=== PATIENT | female | born 1985 | race Caucasian/White ===

== ENCOUNTER 2019-03-17 19:39 | Emergency (ER) | payer OTHER ==
[2019-03-17] MEDS ORDERED: BENADRYL 25 MG CAPSULE PO ONE (19:55)
[2019-03-17] MEDS ORDERED: BENADRYL 25 MG CAPSULE ONE (19:58)
--- NOTE | 2019-03-17 20:00 | ERPHSYRPT ---
- History of Present Illness Time Seen by Provider: 03/17/19 19:56 Source: patient Exam Limitations: no limitations Physician History: 33-year-old white female arrives with complaint that she thinks she is having an allergic reaction. she states that this has been going on for 10 minutes. She thinks she might have been exposed lavender which she is allergic to. She states that she wiped her left thigh and then began having swelling of her left eyelid. She is not having any shortness of breath she has no other complaints,. past medical history patient denies past surgical history includes and tubal ligation. Social history includes marijuana use occasional methamphetamine use and tobacco use she denies alcohol use. . . Timing/Duration: today (10 minutes ago) Severity: mild Associated Symptoms: other (swelling left eyelid), No nausea, No vomiting, No abdominal pain, No shortness of breath, No heartburn, No diaphoresis, No cough, No chills, No chest pain, No fever, No headaches, No loss of appetite, No malaise, No rash, No syncope, No seizure, No weakness Allergies/Adverse Reactions: lavender (Lavandula angustifolia) Allergy (Verified 03/17/19 19:44) Swelling of Eyelids Home Medications: No Reportable Medications [No Reported Medications] 03/17/19 [History] - Review of Systems Constitutional: No Fever, No Chills Eyes: Other (swelling left upper eyelid), No Discharge, No Eye Pain, No Eye Redness, No Itchy, No Photophobia, No Tearing, No Vision Changes, No Double Vision, No Foreign Body Sensation Ears, Nose, & Throat: No Symptoms Respiratory: No Cough, No Dyspnea Cardiac: No Chest Pain, No Edema, No Syncope Abdominal/Gastrointestinal: No Abdominal Pain, No Nausea, No Vomiting, No Diarrhea Genitourinary Symptoms: No Dysuria Musculoskeletal: No Back Pain, No Neck Pain Skin: No Rash Neurological: No Dizziness, No Focal Weakness, No Sensory Changes Psychological: No Symptoms Endocrine: No Symptoms All Other Systems: Reviewed and Negative - Past Medical History Pertinent Past Medical History: No - Past Surgical History Past Surgical History: Yes Female Surgical History: Section, Tubal Ligation - Nursing Vital Signs Nursing Vital Signs: Initial Vital Signs Temperature 97.5 F 03/17/19 19:45 Pulse Rate 101 H 03/17/19 19:45 Respiratory Rate 14 05/18/19 19:45 Blood Pressure 136/93 03/17/19 19:45 O2 Sat by Pulse Oximetry 97 03/17/19 19:45 Pain Scale Pain Intensity 0 - Physical Exam General Appearance: no apparent distress, alert Eye Exam: PERRL/EOMI, other (slight edema left upper eyelid, fundi unremarkable , conjunctiva not erythematous. Sclera are white) Ears, Nose, Throat Exam: normal ENT inspection, TMs normal, pharynx normal, moist mucous membranes Neck Exam: normal inspection, non-tender, supple, full range of motion Respiratory Exam: normal breath sounds, lungs clear, No respiratory distress Cardiovascular Exam: regular rate/rhythm, normal heart sounds, normal peripheral pulses, capillary refill <2 sec Gastrointestinal/Abdomen Exam: soft, normal bowel sounds, No tenderness, No mass Back Exam: normal inspection, normal range of motion, No CVA tenderness, No vertebral tenderness Extremity Exam: normal inspection, normal range of motion, pelvis stable Neurologic Exam: alert, oriented x 3, cooperative, 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, normal mood/affect, nml cerebellar function, nml station & gait, sensation nml, No motor deficits Skin Exam: normal color, warm, dry, No rash Lymphatic Exam: No adenopathy SpO2 Interpretation: normal (98%) Ordered Tests: Active Orders 24 hr Category Date Time Status Visual Acuity STAT Care 03/17/19 19:55 Active Medication Summary Discontinued Medications Generic Name Dose Route Start Last Admin Trade Name Jas PRN Reason Stop Dose Admin Diphenhydramine HCl 50 mg 03/17/19 19:55 03/17/19 19:58 Benadryl 25 Mg Capsule PO 03/17/19 19:56 50 mg STAT ONE Administration Diphenhydramine HCl Confirm 03/17/19 19:58 Benadryl 25 Mg Capsule Administered 03/17/19 19:59 Dose 50 mg .ROUTE .[facility] - Progress Progress: improved Progress Note: 03/17/19 20:53 33-year-old white female arrives with complaint of swelling in her left upper eyelid symptoms since 10 minutes prior to arrival. Patient thinks she came into contact with lavender. Patient is improving with 50 mg of Benadryl orally. Will go ahead and give patient prednisone 60 mg orally and tapering dose. Patient to continue Benadryl 50 mg orally every 6 hours for one to 2 days. Will write for tapering dose of prednisone patient to fill this if symptoms not resolved tomorrow. - Departure Departure Disposition: Home Clinical Impression: Swelling of left upper eyelid Allergic reaction Qualifiers: Encounter type: initial encounter Qualified Code(s): T78.40XA - Allergy, unspecified, initial encounter Condition: Fair Critical Care Time: No Additional Instructions: Return home. Avoid lavender or anything else he might be allergic to. Benadryl 50 mg orally every 6 hours for one to 2 days longer if symptoms persist. Tapering dose of prednisone as directed start tomorrow if symptoms not completely resolved. Followup with your family . symptoms are worse, no better in 24-48 hours, or persist longer than 72 hours. Return for acute distress or for severe symptoms.
[2019-03-17] MEDS ORDERED: DELTASONE 20 MG PO ONE (20:52)
[2019-03-17] MEDS ORDERED: DELTASONE 20 MG ONE (20:55)
[2019-03-17 21:05] VITALS: O2SAT 99
[2019-03-17 21:07] VITALS: BP 132/80; PULSE 88
== END 2019-03-17 21:07 | disposition home or self-care (01) ==
LOC: MERGE 19:39 → ED 19:39
DX: H02.844 Edema of left upper eyelid (principal); T78.40XA Allergy, unspecified, initial encounter
CPT/HCPCS: 99283; A9270-GY

== ENCOUNTER 2019-04-16 05:40 | Emergency (ER) | payer OTHER ==
[2019-04-16] MEDS ORDERED: Sodium Chloride 0.9% 1000 ML 1,000 ML IV STA (06:12)
--- NOTE | 2019-04-16 06:25 | ERPHSYRPT ---
- History of Present Illness Source: patient, family Exam Limitations: no limitations Patient Subjective Stated Complaint: pt is alert and oriented. pt is ambulatory with a steady gait. pt comes in after having a suspected seizure. pt has c/o head and neck pain. pt PERRLA. pt has a small raised area to his right posterior occipital area. no active bleeding. pt is able to speak. pt is able to move all extremities easily. pt has bilat wrist splints on due to suspected carpal tunnel. pt is breathing easily. pt skin pwd. Triage Nursing Assessment: see above Timing/Duration: hour(s) (1), resolved prior to arrival Severity: moderate Character of Deficits: none Baseline/Normal Cognition: alert oriented x 3 Current Cognition: alert oriented x 3 Baseline Gait: walks w/o assistance Associated Symptoms: denies symptoms Hx Tetanus, Diphtheria Vaccination/Date Given: No Hx Influenza Vaccination/Date Given: No Hx Pneumococcal Vaccination/Date Given: No Immunizations Up to Date: Yes <SHELBY QUIJANO - Last Filed: 04/16/19 07:04> <JOSE FISCHER - Last Filed: 04/16/19 08:49> - History of Present Illness Time Seen by Provider: 04/16/19 05:59 Physician History: Pt was found on the floor by her fiancee this morning, apparently she had a seizure lasting about 40 seconds and she became confused after that. She is c/o pain in her upper neck, denies other pain or injury, no nausea, vomiting, no focal weakness, numbness, visual changes or chest pain, SOB< slurred speech other complaints. (SHELBY QUIJANO) Allergies/Adverse Reactions: lavender (Lavandula angustifolia) Allergy (Verified 03/19/19 09:51) Swelling of Eyelids - Review of Systems Constitutional: No Symptoms Eyes: No Symptoms Ears, Nose, & Throat: No Symptoms Respiratory: No Symptoms Cardiac: No Symptoms Abdominal/Gastrointestinal: No Symptoms Genitourinary Symptoms: No Symptoms Musculoskeletal: Neck Pain Skin: No Symptoms Neurological: Seizure All Other Systems: Reviewed and Negative <SHELBY QUIJANO - Last Filed: 04/16/19 07:04> - Past Medical History Pertinent Past Medical History: No Neurological History: Seizures ENT History: No Pertinent History Cardiac History: No Pertinent History Respiratory History: No Pertinent History Endocrine Medical History: No Pertinent History Musculoskeletal History: No Pertinent History GI Medical History: No Pertinent History History: No Pertinent History Psycho-Social History: Bipolar, Depression, Anxiety Female Reproductive Disorders: No Pertinent History Other Medical History: "stress seizures" - Past Surgical History Past Surgical History: Yes Female Surgical History: Tubal Ligation, Section Other Surgical History: x2 - Social History Smoking Status: Current every day smoker How long have you smoked: 20 years Exposure to second hand smoke: Yes Drug Use: marijuana Patient Lives Alone: No - Female History Hx Now: No (tubal) <SHELBY QUIJANO - Last Filed: 04/16/19 07:04> - [place] Coma Scale Best Eye Response (Claudy): (4) open spontaneously Best Verbal Response (Claudy): (5) oriented Best Motor Response ([place]): (6) obeys commands [place] Total: 15 - Physical Exam Eye Exam: bilateral eye: normal inspection, PERRL, EOMI Ears, Nose, Throat Exam: pharynx normal, moist mucous membranes Neck Exam: normal inspection, non-tender, supple, other (mild, bilateral paracervical, muscular tenderness, full ROM, no swelling, or deformity.), No mass, No carotid bruit, No JVD, No midline tenderness Respiratory: normal breath sounds, lungs clear, airway intact, No chest tenderness Cardiovascular: regular rate/rhythm, normal heart sounds, normal peripheral pulses, No murmur Gastrointestinal: soft, normal bowel sounds, No tenderness, No distention, No mass, No guarding, No rebound, No organomegaly Back Exam: normal inspection, No CVA tenderness, No vertebral tenderness Extremity Exam: normal inspection, pelvis stable, No calf tenderness, No pedal edema Mental Status: alert, oriented x 3, 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: normal speech Motor/Sensory: no motor deficit, no sensory deficit DTR: bicep (R): 2+, bicep (L): 2+, tricep (R): 2+, tricep (L): 2+, knee (R): 2+ , knee (L): 2+, ankle (R): 2+, ankle (L): 2+ Skin Exam: normal color, warm, dry, No rash, No petechiae, No cyanosis SpO2 Interpretation: normal SpO2: 97 O2 Delivery: Room Air <SHELBY QUIJANO - Last Filed: 04/16/19 07:04> - Nursing Vital Signs Nursing Vital Signs: Initial Vital Signs Temperature 98.3 F 04/16/19 05:58 Pulse Rate 109 H 04/16/19 05:58 Respiratory Rate 18 04/16/19 05:58 Blood Pressure 111/83 04/16/19 05:58 O2 Sat by Pulse Oximetry 97 04/16/19 05:58 Pain Scale Pain Intensity 6 - Course Nursing assessment & vital signs reviewed: Yes EKG Interpreted by Me: RATE (90/min), NORMAL AXIS, NORMAL INTERVALS, NORMAL QRS , NORMAL ST-T <SHELBY QUIJANO - Last Filed: 04/16/19 07:04> Ordered Tests: Active Orders 24 hr Category Date Time Status EKG-ER Only STAT Care 04/16/19 06:12 Active IV Insertion STAT Care 04/16/19 06:12 Active IV Insertion STAT Care 04/16/19 06:18 Active Pulse Oximetry (ED) STAT Care 04/16/19 06:12 Active Seizure Precautions -SCCHED STAT Care 04/16/19 06:12 Active CERVICAL SPINE WO CONTRAST [CT] Stat Exams 04/16/19 06:17 Completed HEAD WITHOUT CONTRAST [CT] Stat Exams 04/16/19 06:17 Completed CBC W DIFF Stat Lab 04/16/19 06:45 Completed CK-Creatinine Phosphokinase Routine Lab 04/16/19 06:45 Completed CMP Routine Lab 04/16/19 06:45 Completed HCG,QUALITATIVE URINE Stat Lab 04/16/19 06:19 Completed MAGNESIUM Routine Lab 04/16/19 06:45 Completed PROTIME WITH INR Stat Lab 04/16/19 06:45 Completed PTT Stat Lab 04/16/19 06:45 Completed TROPONIN Q3H Lab 04/16/19 06:45 Completed TROPONIN Q3H Lab 04/16/19 09:30 Ordered TROPONIN Q3H Lab 04/16/19 12:30 Ordered TROPONIN Q3H Lab 04/16/19 15:30 Ordered TROPONIN Q3H Lab 04/16/19 18:30 Ordered UA W/RFX UR CULTURE Stat Lab 04/16/19 06:45 Completed Urine Triage Profile Stat Lab 04/16/19 06:45 Completed Medication Summary Discontinued Medications Generic Name Dose Route Start Last Admin Trade Name Freq PRN Reason Stop Dose Admin Sodium Chloride 1,000 mls @ 999 mls/hr 04/16/19 06:12 04/16/19 06:51 Sodium Chloride 0.9% 1000 Ml IV 04/16/19 07:12 999 mls/hr .Q1H1M STA Administration Sodium Chloride Confirm 04/16/19 06:33 Sodium Chloride 0.9% 1000 Ml Administered 04/16/19 06:34 Dose 1,000 mls @ ud .ROUTE .[facility] Lab/Rad Data: Laboratory Result Diagrams 04/16/19 06:45 04/16/19 06:45 Laboratory Results 04/16/19 04/16/19 04/16/19 Range/Units 06:45 06:45 06:45 WBC (4.0-10.5) K/mm3 RBC (4.1-5.4) M/mm3 Hgb (12.0-16.0) gm/dl Hct (35-47) % MCV (78-100) fl MCH (26-32) pg MCHC (32-36) g/dl RDW (11.5-14.0) % Plt Count (150-450) K/mm3 MPV (6-9.5) fl Gran % (36.0-66.0) % Eos # (Auto) (0-0.5) Absolute Lymphs (auto) (1.0-4.6) Absolute Monos (auto) (0.0-1.3) Lymphocytes % (24.0-44.0) % Monocytes % (0.0-12.0) % Eosinophils % (0.00-5.0) % Basophils % (0.0-0.4) % Absolute Granulocytes (1.4-6.9) Basophils # (0-0.4) PT (9.95-12.35) SECONDS INR (0.8-3.0) APTT (25.3-37.0) SECONDS Sodium 141 (137-145) mmol/L Potassium 4.1 (3.5-5.1) mmol/L Chloride 104 (98-107) mmol/L Carbon Dioxide 26 (22-30) mmol/L Anion Gap 15.3 H (5-15) MEQ/L BUN 12 (7-17) mg/dL Creatinine 0.75 (0.52-1.04) mg/dL Estimated GFR > 60.0 ML/MIN Glucose 86 (74-106) mg/dL Calcium 10.1 (8.4-10.2) mg/dL Magnesium 2.0 (1.6-2.3) mg/dL Total Bilirubin 0.60 (0.2-1.3) mg/dL AST 19 (14-36) U/L ALT 12 (0-35) U/L Alkaline Phosphatase 47 (38-126) U/L Creatine Kinase 91 (30-135) U/L Troponin I < 0.012 (0.000-0.034) ng/mL Serum Total Protein 7.8 (6.3-8.2) g/dL Albumin 4.4 (3.5-5.0) g/dL Urine Color STRAW (YELLOW) Urine Appearance CLEAR (CLEAR) Urine pH 7.0 (5-6) Ur Specific [place] 1.005 (1.005-1.025) Urine Protein NEGATIVE (Negative) Urine Ketones NEGATIVE (NEGATIVE) Urine Blood NEGATIVE (0-5) Rashaad/ul Urine Nitrite NEGATIVE (NEGATIVE) Urine Bilirubin NEGATIVE (NEGATIVE) Urine Urobilinogen NEGATIVE (0-1) mg/dL Ur Leukocyte Esterase NEGATIVE (NEGATIVE) Urine WBC (Auto) NONE (0-5) /HPF Urine RBC (Auto) NONE SEEN (0-2) /HPF U Epithel Cells (Auto) NONE (FEW) /HPF Urine Bacteria (Auto) NONE SEEN (NEGATIVE) /HPF Urine Culture Reflexed NO (NO) Urine Glucose NEGATIVE (NEGATIVE) mg/dL Urine HCG, Qual (Negative) Urine Opiates Level NEGATIVE (NEGATIVE) Ur Methadone NEGATIVE (NEGATIVE) Urine Barbiturates NEGATIVE (NEGATIVE) Ur Phencyclidine (PCP) NEGATIVE (NEGATIVE) Urine Amphetamine POSITIVE (NEGATIVE) U Benzodiazepine Level NEGATIVE (NEGATIVE) Urine Cocaine NEGATIVE (NEGATIVE) Urine Marijuana (THC) POSITIVE (NEGATIVE) 04/16/19 04/16/19 04/16/19 Range/Units 06:45 06:45 06:19 WBC 9.0 (4.0-10.5) K/mm3 RBC 4.78 (4.1-5.4) M/mm3 Hgb 15.3 (12.0-16.0) gm/dl Hct 46.3 (35-47) % MCV 96.9 (78-100) fl MCH 32.0 (26-32) pg MCHC 33.0 (32-36) g/dl RDW 13.5 (11.5-14.0) % Plt Count 583 H (150-450) K/mm3 MPV 9.1 (6-9.5) fl Gran % 53.8 (36.0-66.0) % Eos # (Auto) 0.18 (0-0.5) Absolute Lymphs (auto) 3.30 (1.0-4.6) Absolute Monos (auto) 0.58 (0.0-1.3) Lymphocytes % 36.9 (24.0-44.0) % Monocytes % 6.5 (0.0-12.0) % Eosinophils % 2.0 (0.00-5.0) % Basophils % 0.8 (0.0-0.4) % Absolute Granulocytes 4.82 (1.4-6.9) Basophils # 0.07 (0-0.4) PT 12.2 (9.95-12.35) SECONDS INR 1.08 (0.8-3.0) APTT 35.1 (25.3-37.0) SECONDS Sodium (137-145) mmol/L Potassium (3.5-5.1) mmol/L Chloride (98-107) mmol/L Carbon Dioxide (22-30) mmol/L Anion Gap (5-15) MEQ/L BUN (7-17) mg/dL Creatinine (0.52-1.04) mg/dL Estimated GFR ML/MIN Glucose (74-106) mg/dL Calcium (8.4-10.2) mg/dL Magnesium (1.6-2.3) mg/dL Total Bilirubin (0.2-1.3) mg/dL AST (14-36) U/L ALT (0-35) U/L Alkaline Phosphatase (38-126) U/L Creatine Kinase (30-135) U/L Troponin I (0.000-0.034) ng/mL Serum Total Protein (6.3-8.2) g/dL Albumin (3.5-5.0) g/dL Urine Color (YELLOW) Urine Appearance (CLEAR) Urine pH (5-6) Ur Specific [place] (1.005-1.025) Urine Protein (Negative) Urine Ketones (NEGATIVE) Urine Blood (0-5) Rashaad/ul Urine Nitrite (NEGATIVE) Urine Bilirubin (NEGATIVE) Urine Urobilinogen (0-1) mg/dL Ur Leukocyte Esterase (NEGATIVE) Urine WBC (Auto) (0-5) /HPF Urine RBC (Auto) (0-2) /HPF U Epithel Cells (Auto) (FEW) /HPF Urine Bacteria (Auto) (NEGATIVE) /HPF Urine Culture Reflexed (NO) Urine Glucose (NEGATIVE) mg/dL Urine HCG, Qual NEGATIVE (Negative) Urine Opiates Level (NEGATIVE) Ur Methadone (NEGATIVE) Urine Barbiturates (NEGATIVE) Ur Phencyclidine (PCP) (NEGATIVE) Urine Amphetamine (NEGATIVE) U Benzodiazepine Level (NEGATIVE) Urine Cocaine (NEGATIVE) Urine Marijuana (THC) (NEGATIVE) <SHELBY QUIJANO - Last Filed: 04/16/19 07:04> - Progress Progress: improved, re-examined Counseled pt/family regarding: lab results, diagnosis, need for follow-up, rad results <JOSE FISCHER - Last Filed: 04/16/19 08:49> - Progress Progress Note: 04/16/19 07:[address] Fischer, he will follow up with her results. (SHELBY QUIJANO) 04/16/19 08:41 ct head and c spine negative for acute process. pt admits to marijuana use but does not use methamphetamines but is around people who do. i discussed with pt placing her on dilantin because of seizure episode. pt states she agrees to that medication and will follow up with pcp and neurologist before 10 day supply runs out. (JOSE FISCHER) <SHELBY QUIJANO - Last Filed: 04/16/19 07:04> - Departure Departure Disposition: Home Critical Care Time: No <JOSE FISCHER - Last Filed: 04/16/19 08:49> - Departure Clinical Impression: Seizures Condition: Stable Referrals: CARLITOS SRINIVASAN MD [Primary Care Provider] - Additional Instructions: avoid methamphetamines. follow up with primary doctor and neurologist for further management. take medications as prescribed Prescriptions: Phenytoin Sod Extended 100 mg* [Dilantin 100 MG] 100 mg PO TID #30 capsule
[2019-04-16] MEDS ORDERED: Sodium Chloride 0.9% 1000 ML 1,000 ML ONE (06:33)
[2019-04-16 06:59] LABS: BASOPHIL % 0.8 % (0.0-0.4); Basophil (Absolute #) 0.07 (0-0.4); Eosinophil (Absolute #) 0.18 (0-0.5); Granulocyte Absolute (ANC) 4.82 (1.4-6.9); Granulocytes % 53.8 % (36.0-66.0); Hematocrit 46.3 % (35-47); Hemoglobin 15.3 gm/dl (12.0-16.0); Lymphocytes % 36.9 % (24.0-44.0); Mean Cell Volume 96.9 fl (78-100); Mean Platelet Volume 9.1 fl (6-9.5); Monocytes % 6.5 % (0.0-12.0); Platelet Count 583 K/mm3 (150-450); Red Blood Count 4.78 M/mm3 (4.1-5.4); Red Cell Distribution Width 13.5 % (11.5-14.0)
[2019-04-16 07:01] LABS: Appearance CLEAR (CLEAR); Bacteria NONE SEEN /HPF (NEGATIVE); Bilirubin NEGATIVE (NEGATIVE); Blood NEGATIVE Ery/ul (0-5); Glucose NEGATIVE (NEGATIVE); Ketones NEGATIVE (NEGATIVE); Leukocyte Esterase NEGATIVE (NEGATIVE); Nitrite NEGATIVE (NEGATIVE); Protein,Urine Dip NEGATIVE (Negative); RBC NONE SEEN /HPF (0-2); Specific Gravity 1.005 (1.005-1.025); Urobilinogen NEGATIVE mg/dL (0-1)
[2019-04-16 07:06] LABS: INR 1.08 (0.8-3.0); PROTIME 12.2 SECONDS (9.95-12.35)
[2019-04-16 07:09] LABS: PTT 35.1 SECONDS (25.3-37.0)
[2019-04-16 07:22] LABS: ALBUMIN 4.4 g/dL (3.5-5.0); ALKALINE PHOSPHATASE 47 U/L (38-126); ANION GAP 15.3 MEQ/L (5-15); BLOOD UREA NITROGEN 12 mg/dL (7-17); CHLORIDE 104 mmol/L (98-107); CK-Creatinine Phosphokinase 91 U/L (30-135); Calcium 10.1 mg/dL (8.4-10.2); Carbon Dioxide 26 mmol/L (22-30); Creatinine 1 0.75 mg/dL (0.52-1.04); Glucose 86 mg/dL (74-106); Potassium 4.1 mmol/L (3.5-5.1); SGOT/AST 19 U/L (14-36); SGPT/ALT 12 U/L (0-35); SODIUM 141 mmol/L (137-145); Total Protein 7.8 g/dL (6.3-8.2)
[2019-04-16 07:26] LABS: TROPONIN < 0.012 ng/mL (0.000-0.034)
[2019-04-16 07:43] LABS: Barbiturate,Urine NEGATIVE (NEGATIVE); Benzodiazepine,Urine NEGATIVE (NEGATIVE); Cocaine,Urine NEGATIVE (NEGATIVE); Methadone,Urine NEGATIVE (NEGATIVE); Opiate,Urine NEGATIVE (NEGATIVE); PCP,Urine NEGATIVE (NEGATIVE); THC,Urine POSITIVE (NEGATIVE)
[2019-04-16 08:06] LABS: Amphetamine,Urine POSITIVE (NEGATIVE)
--- NOTE | 2019-04-16 08:28 | XRAY ---
Indication: Status post fall. Seizure. Multiple contiguous axial images obtained through the head without contrast. Comparison: None Normal appearing brain parenchyma, ventricles, and bony calvarium. Visualized paranasal sinuses and mastoid air cells are clear. Impression: Normal CT head without contrast exam. CT DI 51.17
--- NOTE | 2019-04-16 08:30 | XRAY ---
Indication: Pain following fall. Seizure. Multiple contiguous axial images obtained through the cervical spine. Sagittal and coronal reformatted images obtained. Comparison: Cervical radiograph April 06, 2019. Axial images negative for acute fracture, suspicious bony lesions, or spinal canal stenosis. Stable minimal C5-C6 endplate spurring. Sagittal and coronal reformatted images again demonstrates lordotic straightening and minimal C5-C6 disc space narrowing. No acute compression fracture, subluxation, or jumped facet. Normal appearing craniocervical junction. Visualized noncontrasted soft tissues unremarkable. Impression: Stable cervical lordotic straightening and C5-C6 degenerative changes. Again negative acute fracture/subluxation. CTDI 48.67
[2019-04-16 08:59] VITALS: BP 124/81; PULSE 70; O2SAT 98
== END 2019-04-16 09:00 | disposition home or self-care (01) ==
LOC: ED 05:40
DX: G40.909 Epilepsy, unspecified, not intractable, without status epilepticus (principal); M54.2 Cervicalgia; F41.9 Anxiety disorder, unspecified; F31.9 Bipolar disorder, unspecified
CPT/HCPCS: 36000; 36415; 70450; 72125; 80053; 80307; 81001; 82550; 83735; 84484; 84703; 85025; 85610; 85730; 93005; 96360; 96361; 99284

== ENCOUNTER 2021-07-31 06:21 | Emergency (ER) | payer OTHER ==
[2021-07-31] MEDS ORDERED: TORAdol 30 mg Injection ONE (07:15)
[2021-07-31] MEDS ORDERED: PERCOCET TABLET 5/325MG ONE (07:16)
[2021-07-31] MEDS ORDERED: TORAdol 30 mg Injection IM ONE (07:19)
[2021-07-31] MEDS ORDERED: PERCOCET TABLET 5/325MG PO STA (07:19)
--- NOTE | 2021-07-31 09:20 | XRAY ---
Indication: Right rib pain following trauma. Comparison: None 2 view right ribs demonstrates old right 6/old left 8 rib fractures and a few tiny bilateral pulmonary calcified granulomas. No other bony, articular, or soft tissue abnormalities.
--- NOTE | 2021-07-31 09:22 | XRAY ---
Indication: Right-sided pain following trauma. Comparison: None Single PA chest hyperinflated and clear with incidental scattered tiny calcified granulomas. Heart not enlarged. Bony thorax intact with old right 6/left 8 rib fractures.
--- NOTE | 2021-07-31 09:50 | ERPHSYRPT ---
- History of Present Illness Time Seen by Provider: 07/31/21 07:11 Source: patient Exam Limitations: no limitations Patient Subjective Stated Complaint: pt fell last night off the bed of a truck onto her right side. Triage Nursing Assessment: pt fell last night off the bed of a truck onto her right side. 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 Pt woke up this morning in alot of pain to her back and rt side of her ribs, unable to take a deep breath due to pain to right side and has a smokers cough but is unable to clear her cough. Physician History: 35 years old female presented in the ER with chief complaint of right-sided rib pain since yesterday after she fell accidentally while unloading stuff from her pickup truck bed and hit her right chest against a gravel. Does have history of rib fractures in the past. 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 It hurts to take a deep breath and with movements and palpation on the posterior lateral mid chest area on the right. Did not hit her head, no loss of consciousness. No injury anywhere else. Occurred: yesterday Injuries/Pain Location: chest Loss of Consciousness: no loss of consciousness Quality: sharpness Severity of Pain-Max: moderate Severity of Pain-Current: moderate Modifying Factors: Improves With: immobilization. Worsens With: movement Associated Symptoms (Fall): chest pain, muscle spasms Allergies/Adverse Reactions: lavender (Lavandula angustifolia) Allergy (Verified 07/31/21 06:45) Swelling of Eyelids Hx Tetanus, Diphtheria Vaccination/Date Given: Yes Hx Influenza Vaccination/Date Given: No Hx Pneumococcal Vaccination/Date Given: No Immunizations Up to Date: Yes Travel Risk - International Travel Have you traveled outside of the country in past 3 weeks: No - Coronavirus Screening Are you exhibiting any of the following symptoms?: No Close contact with a COVID-19 positive Pt in past 14-21 Days: No - Vaccine Status Have you recieved a Covid-19 vaccination: No - Review of Systems Constitutional: No Symptoms Eyes: No Symptoms Ears, Nose, & Throat: No Symptoms Respiratory: No Symptoms Cardiac: Chest Pain Abdominal/Gastrointestinal: No Symptoms Genitourinary Symptoms: No Symptoms Musculoskeletal: Myalgias Skin: No Symptoms Neurological: No Symptoms Psychological: Anxiety Endocrine: No Symptoms Hematologic/Lymphatic: No Symptoms Immunological/Allergic: No Symptoms - Past Medical History Pertinent Past Medical History: Yes Neurological History: Seizures ENT History: No Pertinent History Cardiac History: No Pertinent History Respiratory History: No Pertinent History Endocrine Medical History: No Pertinent History Musculoskeletal History: No Pertinent History GI Medical History: No Pertinent History History: No Pertinent History Psycho-Social History: Bipolar, Depression, Anxiety Female Reproductive Disorders: No Pertinent History Other Medical History: "stress seizures" - Past Surgical History Past Surgical History: Yes Neuro Surgical History: No Pertinent History Cardiac: No Pertinent History Respiratory: No Pertinent History Gastrointestinal: No Pertinent History Genitourinary: No Pertinent History Musculoskeletal: No Pertinent History Female Surgical History: Tubal Ligation, Section Other Surgical History: x2 - Social History Smoking Status: Current every day smoker How long have you smoked: 22 yrs Exposure to second hand smoke: Yes Drug Use: marijuana Patient Lives Alone: No - Female History Hx Now: No - Nursing Vital Signs Nursing Vital Signs: Initial Vital Signs Temperature 97.6 F 07/31/21 06:25 Pulse Rate 72 07/31/21 06:25 Respiratory Rate 22 07/31/21 06:25 Blood Pressure 137/90 07/31/21 06:25 O2 Sat by Pulse Oximetry 98 07/31/21 06:25 Pain Scale Pain Intensity [Right Lateral 8 Back] Pain Intensity 3 - Culbertson Coma Score Best Eye Response (Culbertson): (4) open spontaneously Best Verbal Response (C[place]bertson): (5) oriented Best Motor Response (Claudy): (6) obeys commands Claudy Total: 15 - Physical Exam General Appearance: no apparent distress, alert, anxiety Head Injury: no evidence of injury Eye Exam: PERRL/EOMI, eyes nml inspection ENT Exam: airway nml, No evidence of ENT injury, No dental injury Neck Exam: supple, trachea midline, full range of motion, normal alignment, normal inspection Respiratory/Chest Exam: chest tenderness (Right mid posterior lateral chest wall with no crepitus or paradoxical movement), normal breath sounds, No respiratory distress Cardiovascular Exam: normal heart sounds, regular rate/rhythm Gastrointestinal Exam: soft, normal bowel sounds, No tenderness, No guarding Back Exam: normal inspection, normal range of motion Extremity Exam: normal inspection, normal range of motion Neurologic Exam: alert, oriented x 3, cooperative, 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 Skin Exam: normal color SpO2 Interpretation: normal SpO2: 95 O2 Delivery: Room Air Ordered Tests: Active Orders 24 hr Category Date Time Status CHEST 1 VIEW (PORTABLE) Stat Exams 07/31/21 07:19 Completed RIBS UNILATERAL Stat Exams 07/31/21 07:42 Completed Medication Summary Discontinued Medications Generic Name Dose Route Start Last Admin Trade Name Jas PRN Reason Stop Dose Admin Ketorolac Tromethamine Confirm 07/31/21 07:15 Toradol 30 Mg Injection Administered 07/31/21 07:16 Dose 30 mg .ROUTE .STK-MED ONE Ketorolac Tromethamine 30 mg 07/31/21 07:19 07/31/21 07:23 Toradol 30 Mg Injection IM 07/31/21 07:20 30 mg STAT ONE Administration Oxycodone/Acetaminophen Confirm 07/31/21 07:16 Percocet Tablet 5/325mg Administered 07/31/21 07:17 Dose 1 tab .ROUTE .STK-MED ONE Oxycodone/Acetaminophen 1 tab 07/31/21 07:19 07/31/21 07:22 Percocet Tablet 5/325mg PO 07/31/21 07:20 1 tab STAT STA Administration - Progress Progress: improved Progress Note: 07/31/21 09:47 She is given symptomatic treatment, will obtain x-rays which are negative for any rib fracture, pneumothorax or any other acute findings. Recommended deep breathing exercises and symptomatic treatment. Outpatient follow-up. Did not hit her head, no loss of consciousness, do not think needs any other work-up. Discussed signs symptoms of worsening needing return to ER which patient seems understanding. Counseled pt/family regarding: diagnosis, need for follow-up, rad results - Departure Departure Disposition: Extended Care Facility Clinical Impression: Contusion of rib on right side Qualifiers: Encounter type: initial encounter Qualified Code(s): S20.211A - Contusion of right front wall of thorax, initial encounter Fall Qualifiers: Encounter type: initial encounter Qualified Code(s): W19.XXXA - Unspecified fall, initial encounter Condition: Stable Critical Care Time: No Referrals: RITA ZARATE DO [Primary Care Provider] - Follow Up with PCP/3 days Instructions: Bruised Rib (DC) Additional Instructions: Take Tylenol/ibuprofen as needed for pain. Do deep breathing sizes. Follow-up with your primary care for reevaluation or difficulty breathing etc. Prescriptions: Ibuprofen 600 mg PO Q6HPRN PRN 10 Days #20 tablet PRN Reason: Pain
[2021-07-31 09:56] VITALS: BP 124/82; PULSE 60
[2021-07-31 17:55] VITALS: O2SAT 95
== END 2021-07-31 09:57 | disposition home or self-care (01) ==
LOC: ED 06:21
DX: S20.211A Contusion of right front wall of thorax, initial encounter (principal); W17.89XA Other fall from one level to another, initial encounter; Y93.89 Activity, other specified; Y92.89 Other specified places as the place of occurrence of the external cause; Y99.0 Civilian activity done for income or pay
CPT/HCPCS: 71045; 71100; 96372; 99284; J1885; A9270-GY